=== PATIENT | female | born 1955 | race Caucasian/White ===

== ENCOUNTER → 2017-06-20 | Outpatient (CLI) | payer BC ==
[~2017-06-20] MED LIST: ASPI-715 PO; CALCIUM SUPPLIMENT; IBUPROFEN; PAN40 PO; PROBIOTIC; VITAMINS
--- NOTE | 2017-06-22 08:31 | RADIOLOGY IMAGING REPORT ---
[place] [facility] [place] TRUONG HOLT : [id number] MR: [id number] V: [id number] EXAM DATE: ORDERING PHYSICIAN: SHELBY RESTREPO TECHNOLOGIST: Paris Lira PROCEDURE:BILATERAL DIGITAL SCREENING MAMMOGRAM WITH CAD ASSISTED INTERPRETATION AND 3D BREAST TOMOSYNTHESIS. COMPARISON:Prior mammograms dated 05/31/16, 04/27/15, 04/23/14, 04/10/14 and 03/05/13. INDICATIONS:SCREENING FINDINGS: Moderately dense fibroglandular tissue is seen throughout the breasts. There is a focal nodular area of increased density in the upper outer quadrant of the right breast zone 3 but is incompletely imaged on the CC view. Appeared to have been present in 2016 though appears slightly more prominent when compared to the prior mammograms from 2014, 2013 and 2012. Right breast ultrasound recommended for further evaluation. DIAGNOSTIC CATEGORY 0--INCOMPLETE: NEED ADDITIONAL IMAGING EVALUATION. RECOMMENDATIONS: ULTRASOUND: RIGHT BREAST. IMPRESSION: BI-RADS 0: Right breast ultrasound recommended. Images were reviewed with R2CAD and 3D breast tomosynthesis. Dictated by: Cindy Noland M.D. on 06/21/2017 at 15:31 Transcribed by: LAVONNE on 06/21/2017 at 19:16 Approved by: Cindy Noland M.D. on 06/22/2017 at 8:30 [facility]
== END ==
LOC: MAMO 01:44
PROVIDERS: ATTEND Obstetrics & Gynecology
DX: Z12.31 Encounter for screening mammogram for malignant neoplasm of breast (principal); R92.8 Other abnormal and inconclusive findings on diagnostic imaging of breast
CPT/HCPCS: 77063; 77067

== ENCOUNTER → 2017-06-28 | Outpatient (CLI) | payer BC ==
--- NOTE | 2017-06-29 08:25 | RADIOLOGY IMAGING REPORT ---
FACILITY: [facility] - [place] PATIENT NAME: TRUONG HOLT : [id number] MR: [id number] V: [id number] EXAM DATE: [id number] ORDERING PHYSICIAN: SHELBY RESTREPO TECHNOLOGIST: Elias Be PROCEDURE:US RIGHT BREAST COMPLETE COMPARISON:Prior mammograms dated 06/20/17. INDICATIONS:FURTHER EVALUATION FINDINGS: In the approximate 9 o'clock position of the right breast there is an ovoid cyst measuring 3.7 x 5.9 x 8.6 mm which likely accounts for the recent mammographic findings. DIAGNOSTIC CATEGORY 2--BENIGN FINDING. RECOMMENDATIONS: ROUTINE MAMMOGRAM AND CLINICAL EVALUATION. IMPRESSION: BI-RADS 2: There is an ovoid cyst in the 9 o'clock position of the right breast likely accounting for patient's mammographic finding. Dictated by: Cindy Noland M.D. on 06/28/2017 at 16:30 Transcribed by: LAVONNE on 06/28/2017 at 23:19 Approved by: Cindy Noland M.D. on 06/29/2017 at 8:24 [facility]
== END ==
LOC: US 01:40
PROVIDERS: ATTEND Obstetrics & Gynecology
DX: N60.01 Solitary cyst of right breast (principal)